=== PATIENT | male | born 1930 | race Caucasian/White ===

== ENCOUNTER 2016-09-17 20:38 | Inpatient (IN) | payer OTHER ==
--- NOTE | ~2016-09-17 | CN ---
Consultation Report [place] [place]. [address] NAME: GARRICK GONZALEZ : 30 STATUS : ADM IN PAT#: [id number] AGE: 85 ADM/REG DATE : 09/17/16 MR#: [id number] REPORT SERV DATE: 09/18/16 DICTATED BY: GARRICK GAY JR. DATE: 09/18/16 REPORT STATUS : Draft TRANSCRIBED BY: MODL DATE: 09/18/16 CONSULT NOTE DATE OF CONSULTATION: 09/18/2016 GREEN END WORKER: Garrick Gay MD. CHIEF COMPLAINT: Urinary retention. Flank pain. Acute kidney injury. HISTORY OF PRESENT ILLNESS: Mr. Gonzalez is a very pleasant 85-year-old gentleman, well known to me with a history of urinary retention. He has had a Salcedo catheter for the past several weeks. He attempted Salcedo catheter removal today in the office and was instructed to come to the office if he was unable to urinate. By 3:30, he did not come back to the office that afternoon but presented back to the emergency room that evening. He also was noted to have an elevated white blood cell count of 18,900 with a creatinine of 2.47 and an elevated blood sugar of 404. PAST MEDICAL HISTORY: Significant for hypertension, hyperlipidemia, BPH with urinary retention, insulin-dependent diabetes mellitus type 2, history of nephrolithiasis, hypothyroidism, chronic lower back pain and degenerative disc disease, and gastroesophageal reflux. SURGICAL HISTORY: Lithotripsy in the past. ALLERGIES: NONE KNOWN. HOME MEDICATIONS: 1. Aspirin. 2. Atorvastatin. 3. Ciprofloxacin. 4. [place]. 5. Lantus insulin. 6. Humalog. 7. Levothyroxine. 8. Losartan. 9. Mobic. 10.Metformin. 11.Multivitamin. 12.Flomax. SOCIAL HISTORY: He does not smoke cigarettes, use illicit drugs, or drink alcohol. His recently . FAMILY MEDICAL HISTORY: Diabetes and stroke and coronary artery disease. Consultation Report [place] [address] [place]. [address] NAME: GARRICK GONZALEZ : 30 STATUS : ADM IN PAT#: [id number] AGE: 85 ADM/REG DATE : 09/17/16 MR#: [id number] REPORT SERV DATE: 06/02/17 DICTATED BY: GARRICK GAY JR. DATE: 09/18/16 REPORT STATUS : Draft TRANSCRIBED BY: LISA DATE: 09/18/16 REVIEW OF SYSTEMS: A 10-system review was performed. Pertinent negatives include no headache. No chest pain. No nausea. No vomiting. LABORATORY DATA: White blood cell count this morning is down to 14.1 with a hemoglobin of 11.1. Creatinine has come down to 2.1. ASSESSMENT: Urinary tract infection with urinary retention and acute kidney injury. RECOMMENDATION: I had a lengthy discussion with the daughter as well as the patient today. He had a son and son-in-law with him in the office yesterday, and we had the same conversation regarding rehabilitation of his bladder with either clean intermittent catheterization or a suprapubic tube. He may be a candidate for TUMT or TURP depending on how he does with his bladder rehab. He was taught clean intermittent catheterization on two separate occasions but has been unable to do so at home. The plan at this point will be to leave his Salcedo catheter in until his urinary tract infection has been treated. Cultures with culture sensitivity directed antibiotics. We will get his blood sugar under better control and hopefully have him assessed from a back pain standpoint and his degenerative disc disease and hopefully improve his right leg pain that is giving him most difficulties. We will then have him back in the office next week to further discuss clean intermittent catheterization versus suprapubic tube placement for bladder rehabilitation, and then we will discuss surgical therapy for BPH once we have had an opportunity to reestablish some type of consistent bladder emptying without an indwelling Salcedo catheter. MAIRA/LISA Garrick Gay Jr., M.D. / [id number] CC: DO Tejinder Diana M.D.
--- NOTE | ~2016-09-17 | DS ---
Discharge Summary [facility] [address] [place]. [address] NAME: CHOLO GONZALEZ : 30 STATUS : DIS IN PAT#: [id number] AGE: 86 ADM/REG DATE : 09/17/16 MR#: [id number] REPORT SERV DATE: 09/21/16 DICTATED BY: JUSTIN COLLINS DATE: 09/20/16 REPORT STATUS : Draft TRANSCRIBED BY: MODL DATE: 09/20/16 ADMISSION DATE: 09/17/2016 DISCHARGE DATE: 09/20/2016 REASON FOR ADMISSION: Urinary retention, acute kidney injury secondary to obstructive uropathy. HISTORY OF PRESENT ILLNESS: Please refer Dr. Ward's history and physical dated 09/17/2016 for complete details regarding the patient's admission. In brief, the patient was admitted to the Hospitalist Service for management and evaluation of his ASTER secondary to obstructive uropathy. HOSPITAL COURSE: The patient had an uncomplicated hospital course. He was admitted by my colleague, Dr. Ward. The patient was just at Dr. Gay's office with a catheter, which he had discontinued. The patient was unable to void and presented to the ER with some pain and urinary retention. He had a Salcedo placed back. Dr. Gay was consulted. Creatinine on admission was 2.47 with a BUN and it has trended towards his baseline, which is a normal kidney function. His creatinine on the day of discharge is down to 1.57 with a BUN of 18. He was started on IV Rocephin for a possible urinary tract infection. Urine culture came back as less than 5000 colonies. Of note, he did have a dose of ciprofloxacin prior to admission. He had received about four days worth of IV antibiotics. Initially, a CAT scan of the abdomen was ordered; however, the patient had decline on the 1st day, then on the day prior to discharge, he was called back down to have the CAT scan done but he was not having any symptoms and his kidney function was getting better, therefore the CT scan was canceled. Dr. Gay had evaluated the patient in the hospital and recommended controlling his blood sugars and following up in one to two weeks for management of his bladder and prostate. He remained on his home dose of finasteride. His sugars were decently controlled. He did have an A1c of 13.3%. He was placed on his home dose of Lantus, which was 18 units and on a level 2 sliding scale with meals. He required anywhere from 0-4 units with his sliding scale. His daughter is concerned about his eating. He did have recent of his in July and is certainly grieving about this process and there could likely be some depression playing a role in that, but he will follow up with a GI doctor and neurosurgeon for his back pain. The patient has reached maximal hospitalization, but discharged home today in a stable condition. DISCHARGE DIAGNOSES: Acute kidney injury secondary to urinary obstruction, now resolving with a Salcedo catheter in place; urinary tract infection, now treated; benign prostatic hypertrophy, followed by Dr. Gay; degenerative joint disease with sciatica; hyperlipidemia; debility; hyponatremia, present on admission; uncontrolled insulin-dependent diabetes with an A1c of 13.3%. PROCEDURES: Include consultation with Dr. Gay. The patient will follow up with Dr. Gay in one to two weeks and Dr. Tejinder Blackmon to discuss his diabetes regimen as they feel that the short-acting insulin is too much for him. DISCHARGE MEDICATIONS: Include aspirin 81 mg daily, Mobic 15 mg p.r.n., Lipitor 10 mg every Discharge Summary [address] [address] NAME: CHOLO GONZALEZ : 30 STATUS : DIS IN PAT#: [id number] AGE: 86 ADM/REG DATE : 09/17/16 MR#: [id number] REPORT SERV DATE: 09/21/16 DICTATED BY: JUSTIN COLLINS DATE: 09/20/16 REPORT STATUS : Draft TRANSCRIBED BY: LISA DATE: 09/20/16 morning, Mims p.r.n. pain, insulin glargine 18 units before breakfast, Synthroid 25 mg every morning, multivitamin daily, Flomax 0.4 mg daily, losartan 100 mg every morning, metformin 1000 mg every morning, lispro 4 units t.i.d. with meals if eating. TIME SPENT: Over 30 minutes in discharge planning and coordination of care on Mr. Gonzalez. DICTATED BY: MD ANNA Gonzalez/LISA Justin Collins MD / [id number] CC: DO Tejinder Diana M.D. William Young Jr., M.D.
--- NOTE | ~2016-09-17 | HP ---
History And Physical [facility] [address] [place]. [address] NAME: CHOLO GONZALEZ : 30 STATUS : ADM IN PAT#: [id number] AGE: 85 ADM/REG DATE : 09/17/16 MR#: [id number] REPORT SERV DATE: 09/17/16 DICTATED BY: ROSA SPARROW DATE: 09/17/16 REPORT STATUS : Draft TRANSCRIBED BY: MODL DATE: 09/17/16 DATE OF ADMISSION: 09/17/2016 POINT OF ENTRY: [facility] Emergency Department. PRIMARY CARE PHYSICIAN: Tejinder Blackmon M.D. PRIMARY UROLOGIST: Dr. Gay. CHIEF COMPLAINT: Urinary retention and back pain. HISTORY OF PRESENT ILLNESS: Mr. Gonzalez is an 85-year-old gentleman with a history of insulin dependent diabetes mellitus type 2, hypertension, hyperlipidemia, and hypothyroidism, who presents to the emergency department today with recurrent urinary retention. The patient has had some recent troubles with urinary retention and has seen Dr. Gay in clinic. He saw him today in clinic and had his Salcedo catheter removed and was instructed that should he not be able to pee afterwards to present to the emergency department. Unfortunately, shortly after the Salcedo catheter was removed, and upon returning home, he had a sensation that he needed to pee but could not void prompting presentation to the ER. By family's report, this is now the third Salcedo catheter that has been inserted for issues with urinary retention. The patient also has had some substantial recent issues with lower back pain and sciatica type symptoms that are causing lower extremity pain, weakness, as well as frequent falls. He has had an outpatient MRI, would presume the lumbar spine, which per family report shows degenerative disk disease and they are awaiting outpatient neurosurgical evaluation for non- operative interventions. He denies any recent fevers, night sweats, chills, chest pain, shortness of breath, palpitations, abdominal pain, nausea, vomiting, diarrhea, constipation, dysuria, melena, hematochezia, hemoptysis, or hematemesis. Initial evaluation in the emergency department notable for stable vital signs. White count 18,900. Urinalysis is positive for urinary tract infection. Bladder scan did not reveal significant distention but Salcedo catheter was inserted. Labs also notable for a BUN of 48, creatinine 2.47 with unknown baseline. Sugar also was 404. The patient was started on IV fluids, antibiotics, as well as insulin and admitted to the Hospitalist Service. REVIEW OF SYSTEMS: Comprehensive review of system otherwise negative unless listed in history of present illness. PREVIOUS MEDICAL HISTORY: 1. Hypertension. 2. Hyperlipidemia. History And Physical [address] [place]. [address] NAME: CHOLO GONZALEZ : 30 STATUS : ADM IN LOCATED WITHIN [facility]#: [id number] AGE: 85 ADM/REG DATE : 09/17/16 MR#: [id number] REPORT SERV DATE: 09/17/16 DICTATED BY: ROSA SPARROW DATE: 09/17/16 REPORT STATUS : Draft TRANSCRIBED BY: LISA DATE: 09/17/16 3. BPH with urinary retention. 4. Insulin-dependent diabetes mellitus type 2. 5. History of nephrolithiasis. 6. Hypothyroidism. 7. Chronic lower back pain and degenerative disk disease. 8. Gastroesophageal reflux disease. SURGICAL HISTORY: Lithotripsy. ALLERGIES: NO KNOWN DRUG ALLERGIES. HOME MEDICATIONS: 1. Aspirin 81 mg daily. 2. Atorvastatin 10 mg daily. 3. Ciprofloxacin 500 mg one time dose. 4. Advance 5/325 one-half tab b.i.d. 5. Lantus 18 units daily. 6. Humalog 7 units daily. 7. Levothyroxine 25 mcg daily. 8. Losartan 100 mg daily. 9. Mobic 50 mg daily p.r.n. 10.Metformin 1000 mg daily. 11.Multivitamin one tab daily. 12.Flomax 0.4 mg daily. SOCIAL HISTORY: Denies any tobacco, alcohol, or illicits, is recently . FAMILY MEDICAL HISTORY: Mother with diabetes and stroke. Father with coronary artery disease. Sibling with brain cancer. LABS AND IMAGIN. White count is 18.9, hemoglobin 11.6, hematocrit is 35.1, and platelet count is 456. 2. Sodium is 132, potassium 4.7, chloride 94, carbon dioxide 30, BUN is 48, creatinine 2.47, glucose is 404, calcium is 9.4, protein 7.4, albumin is 2.4, bilirubin is 0.4, ALT is 12, AST 6, alkaline phosphatase is 103. 3. Urinalysis: Spec gravity is 1.015, hazy with positive glucose but negative ketones, large blood and large leukocyte esterase with 176 red blood and 129 white blood cells per high-powered field. PHYSICAL EXAMINATION: VITAL SIGNS: Temperature is 97.2 degrees Fahrenheit, pulse is 87, respirations 16, blood pressure 134/89, saturating 98% on room air. GENERAL: The patient is awake, alert, in no acute distress, resting comfortably in bed. He is a well-developed, well-nourished, elderly male. Multiple family members are at bedside. HEENT: Atraumatic and normocephalic. Dry mucous membranes. Pupils are equal, round, reactive to light and accommodation. Extraocular eye movements are intact. No scleral History And Physical [address] [address] NAME: CHOLO GONZALEZ : 30 STATUS : ADM IN LOCATED WITHIN [facility]#: [id number] AGE: 85 ADM/REG DATE : 09/17/16 MR#: [id number] REPORT SERV DATE: 09/17/16 DICTATED BY: ROSA SPARROW DATE: 09/17/16 REPORT STATUS : Draft TRANSCRIBED BY: LISA DATE: 09/17/16 icterus. NECK: No jugular venous distention. No carotid bruits. CARDIAC: Regular rate and rhythm. No murmurs, rubs, or gallops. Normal S1, S2. LUNGS: Clear to auscultation bilaterally. No wheezes, rhonchi, or crackles. ABDOMEN: Soft, nontender, nondistended. Good bowel sounds. No rebound, guarding, or rigidity. EXTREMITIES: Warm, perfused. No cyanosis, clubbing, or edema. SKIN: Warm and dry. PSYCH: Affect appropriate. : Salcedo catheter in place. NEUROLOGIC: Alert and oriented x3. Cranial nerves 2 through 12 grossly intact. Speech is normal. Gait not assessed. ASSESSMENT: Mr. Gonzalez is an 85-year-old gentleman who has had recent issues with urinary retention requiring long-term Salcedo catheter insertion who presents back with recurrent urinary retention after Salcedo catheter has recently been discontinued. PROBLEM LIST: 1. Recurrent urinary retention. 2. BPH. 3. Urinary tract infection. 4. Leukocytosis. 5. Acute kidney injury versus chronic kidney disease, stage III. 6. Insulin-dependent diabetes mellitus type 2 with hyperglycemia. 7. Chronic lower back pain with degenerative disk disease. PLAN: 1. Urinary retention and BPH. We will continue patient's home Flomax. Salcedo catheter has been inserted. We will consult Dr. Gay for assistance in the morning. 2. Urinary tract infection. Follow up urine culture. We will place the patient on IV Rocephin in the meantime. 3. Acute kidney injury versus chronic kidney disease stage 3. We will try to obtain records from Dr. Blackmon's office to try to establish recent baseline. Holding nephrotoxic medications. Providing IV fluid hydration. We will check urine lytes as well as a CT of the abdomen and pelvis to evaluate for any evidence of obstruction especially in light of history of nephrolithiasis in the past. 4. Insulin-dependent diabetes mellitus type 2 with hyperglycemia. Per patient's report, he has not been good about checking his blood sugar or taking his insulin in the last few weeks as he has not felt well secondary to his back pain and sciatica. He has received 5 units of IV insulin here in the emergency department. We will continue level 2 sliding scale as well as his home Levemir. We will check hemoglobin A1c as well as consult staff educator for assistance. 5. Leukocytosis, likely secondary to urinary tract infection. Antibiotics were administered prior to collection of blood cultures, so these will not be ordered, but we will check a chest x-ray as well as a CT of the abdomen and pelvis. 6. Chronic lower back pain with degenerative disk disease. Given reports of weakness and falls, we will consult Physical Therapy for assistance. We will defer further History And Physical [address] [address] NAME: CHOLO GONZALEZ : 30 STATUS : ADM IN PAT#: [id number] AGE: 85 ADM/REG DATE : 09/17/16 MR#: [id number] REPORT SERV DATE: 09/17/16 DICTATED BY: ROSA SPARROW DATE: 09/17/16 REPORT STATUS : Draft TRANSCRIBED BY: LISA DATE: 09/17/16 management of his chronic lower back pain to his primary care physician. 7. DVT prophylaxis. Heparin subcu. CODE STATUS: The patient wished to be full code. MARYBETH/LISA Rosa Sparrow MD / [id number] CC: Diamond Jarvis Jr., M.D.
[2016-09-17 20:40] LABS: BASOPHILS 0.2 %; BASOPHILS ABSOLUTE 0.04 10/3/uL (0.0-0.16); EOSINOPHILS 0.8 %; EOSINOPHILS ABSOLUTE 0.15 10/3/uL (0.0-0.53); ER CBC TAT 0 Hrs 03 Mins; HEMATOCRIT 35.1 % (40.0-51.0); HEMOGLOBIN 11.6 g/dL (13.6-17.8); IMMATURE GRANULOCYTES 0.5 %; IMMATURE GRANULOCYTES ABSOLUTE 0.09 10/3/uL (0.0-0.11); LYMPHOCYTES 5.8 %; MEAN CORPUSCULAR HEMOGLOB 27.8 pg (26.0-34.0); MEAN CORPUSCULAR VOLUME 84.2 fL (80-100); MEAN PLATELET VOLUME 9.5 fL (9.2-13.0); MONOCYTES 6.2 %; MONOCYTES ABSOLUTE 1.17 10/3/uL (0.21-1.20); NEUTROPHILS 86.5 %; NEUTROPHILS ABSOLUTE 16.31 10/3/uL (2.02-8.40); PLATELET COUNT 456 10/3/uL (150-400); RBC DISTRIBUTION WIDTH 12.7 % (12.0-16.0); RED CELL COUNT 4.17 10/6/uL (4.7-6.1); WHITE BLOOD CELLS 18.9 10/3/uL (4.5-10.5)
[2016-09-17 20:44] LABS: MANUAL DIFF NO %
[2016-09-17 20:47] LABS: ASCORBIC ACID (UR NOT ORDER) NEG (NEG); BILIRUBIN, URINE NEGATIVE (NEG); ER URINALYSIS TAT 0 Hrs 11 Mins; KETONE, URINE NEGATIVE (NEG); LEUKOCYTE ESTERASE(NOT OR LARGE (NEG); NITRITE (URINE) NEG (NEG); WBC (NOT ORDERED) (RFLEX) 129 (0-5)
[2016-09-17 20:55] LABS: A/G RATIO 0.5 (0.7-1.9); ALBUMIN 2.4 G/DL (3.5-5.0); ALKALINE PHOSPHATASE 103 U/L (45-117); BUN (BLOOD UREA NITROGEN) 48 MG/DL (6-23); CALCIUM, SERUM 9.4 MG/DL (8.5-10.4); CHLORIDE, SERUM 94 MMOL/L (96-112); CO2 (CARBON DIOXIDE) 30 MMOL/L (24-34); CREATININE 2.47 MG/DL (0.70-1.30); GFR AFRICAN AMERICAN 27 ML/MIN (>=60); GFR NON AFRICAN AMERICAN 23 ML/MIN (>=60); POTASSIUM, SERUM 4.7 MMOL/L (3.5-5.3); SGOT(AST) 6 U/L (5-40); SGPT(ALT) 12 U/L (5-65); SODIUM, SERUM 132 MMOL/L (135-148); TOTAL BILIRUBIN 0.4 MG/DL (0-1.2); TOTAL PROTEIN 7.4 G/DL (6.0-8.5)
[2016-09-17 20:58] LABS: GLUCOSE, SERUM 404 MG/DL (60-99)
[2016-09-17] MEDS ORDERED: NORCO1 TA1 PO (21:56)
[2016-09-17] MEDS ORDERED: MOBIC15 MG PO (21:57)
[2016-09-17] MEDS ORDERED: CIP5 PO (21:57)
[2016-09-17] MEDS ORDERED: LIPITOR10 PO (21:58)
[2016-09-17] MEDS ORDERED: COZAAR100 MG PO (21:58)
[2016-09-17] MEDS ORDERED: SYN.025B PO (21:59)
[2016-09-17] MEDS ORDERED: GLUCOPHAGE1000 MG PO (22:00)
[2016-09-17] MEDS ORDERED: NOVOLOG SC (22:01)
[2016-09-17] MEDS ORDERED: LANTUS SC (22:02)
[2016-09-17] MEDS ORDERED: THERA M PLUS PO (22:03)
[2016-09-17] MEDS ORDERED: FLOMAX4 PO (22:03)
[2016-09-17] MEDS ORDERED: ASAB PO (22:04)
[2016-09-18 06:48] LABS: BASOPHILS 0.1 %; BASOPHILS ABSOLUTE 0.02 10/3/uL (0.0-0.16); EOSINOPHILS 3.5 %; EOSINOPHILS ABSOLUTE 0.49 10/3/uL (0.0-0.53); HEMATOCRIT 33.5 % (40.0-51.0); HEMOGLOBIN 11.1 g/dL (13.6-17.8); IMMATURE GRANULOCYTES 0.6 %; IMMATURE GRANULOCYTES ABSOLUTE 0.08 10/3/uL (0.0-0.11); LYMPHOCYTES 9.1 %; LYMPHOCYTES ABSOLUTE 1.28 10/3/uL (0.67-4.30); MEAN CORPUS HGB CONC 33.1 g/dL (32.0-36.0); MEAN CORPUSCULAR VOLUME 84.4 fL (80-100); MEAN PLATELET VOLUME 9.4 fL (9.2-13.0); MONOCYTES 6.5 %; MONOCYTES ABSOLUTE 0.91 10/3/uL (0.21-1.20); NEUTROPHILS 80.2 %; NEUTROPHILS ABSOLUTE 11.29 10/3/uL (2.02-8.40); PLATELET COUNT 412 10/3/uL (150-400); RBC DISTRIBUTION WIDTH 12.5 % (12.0-16.0); RED CELL COUNT 3.97 10/6/uL (4.7-6.1); WHITE BLOOD CELLS 14.1 10/3/uL (4.5-10.5)
[2016-09-18 06:54] LABS: MANUAL DIFF NO %
[2016-09-18 07:09] LABS: CALCIUM, SERUM 9.3 MG/DL (8.5-10.4); CHLORIDE, SERUM 103 MMOL/L (96-112); CO2 (CARBON DIOXIDE) 28 MMOL/L (24-34); FREE T4 1.36 NG/DL (0.76-1.46); GFR AFRICAN AMERICAN 32 ML/MIN (>=60); GFR NON AFRICAN AMERICAN 28 ML/MIN (>=60); POTASSIUM, SERUM 4.2 MMOL/L (3.5-5.3); SODIUM, SERUM 136 MMOL/L (135-148)
[2016-09-18 07:11] LABS: BUN (BLOOD UREA NITROGEN) 41 MG/DL (6-23); GLUCOSE, SERUM 242 MG/DL (60-99)
[2016-09-19 04:56] LABS: CHLORIDE, SERUM 108 MMOL/L (96-112); CO2 (CARBON DIOXIDE) 26 MMOL/L (24-34); CREATININE 1.74 MG/DL (0.70-1.30); GFR AFRICAN AMERICAN 41 ML/MIN (>=60); GFR NON AFRICAN AMERICAN 35 ML/MIN (>=60); PHOSPHORUS, SERUM 2.4 MG/DL (2.5-4.5); POTASSIUM, SERUM 4.3 MMOL/L (3.5-5.3); SODIUM, SERUM 141 MMOL/L (135-148)
[2016-09-19 04:57] LABS: BUN (BLOOD UREA NITROGEN) 28 MG/DL (6-23); CALCIUM, SERUM 8.2 MG/DL (8.5-10.4); GLUCOSE, SERUM 150 MG/DL (60-99)
[2016-09-19 04:58] LABS: BASOPHILS 0.5 %; BASOPHILS ABSOLUTE 0.05 10/3/uL (0.0-0.16); EOSINOPHILS 6.4 %; EOSINOPHILS ABSOLUTE 0.61 10/3/uL (0.0-0.53); HEMATOCRIT 30.4 % (40.0-51.0); IMMATURE GRANULOCYTES 0.3 %; IMMATURE GRANULOCYTES ABSOLUTE 0.03 10/3/uL (0.0-0.11); LYMPHOCYTES 13.5 %; LYMPHOCYTES ABSOLUTE 1.29 10/3/uL (0.67-4.30); MEAN CORPUS HGB CONC 32.9 g/dL (32.0-36.0); MEAN CORPUSCULAR VOLUME 85.2 fL (80-100); MEAN PLATELET VOLUME 9.6 fL (9.2-13.0); MONOCYTES ABSOLUTE 0.67 10/3/uL (0.21-1.20); NEUTROPHILS 72.3 %; NEUTROPHILS ABSOLUTE 6.92 10/3/uL (2.02-8.40); PLATELET COUNT 407 10/3/uL (150-400); RBC DISTRIBUTION WIDTH 12.7 % (12.0-16.0); RED CELL COUNT 3.57 10/6/uL (4.7-6.1); WHITE BLOOD CELLS 9.6 10/3/uL (4.5-10.5)
[2016-09-19 04:59] LABS: MANUAL DIFF NO %
[2016-09-20 08:12] LABS: BASOPHILS 0.8 %; BASOPHILS ABSOLUTE 0.06 10/3/uL (0.0-0.16); EOSINOPHILS 7.8 %; EOSINOPHILS ABSOLUTE 0.59 10/3/uL (0.0-0.53); HEMOGLOBIN 10.2 g/dL (13.6-17.8); IMMATURE GRANULOCYTES 0.5 %; IMMATURE GRANULOCYTES ABSOLUTE 0.04 10/3/uL (0.0-0.11); LYMPHOCYTES 16.2 %; LYMPHOCYTES ABSOLUTE 1.23 10/3/uL (0.67-4.30); MEAN CORPUS HGB CONC 32.9 g/dL (32.0-36.0); MEAN CORPUSCULAR VOLUME 85.2 fL (80-100); MEAN PLATELET VOLUME 9.2 fL (9.2-13.0); MONOCYTES 6.1 %; MONOCYTES ABSOLUTE 0.46 10/3/uL (0.21-1.20); NEUTROPHILS 68.6 %; PLATELET COUNT 385 10/3/uL (150-400); RBC DISTRIBUTION WIDTH 12.9 % (12.0-16.0); RED CELL COUNT 3.64 10/6/uL (4.7-6.1); WHITE BLOOD CELLS 7.6 10/3/uL (4.5-10.5)
[2016-09-20 08:15] LABS: MANUAL DIFF NO %
[2016-09-20 08:27] LABS: CALCIUM, SERUM 8.5 MG/DL (8.5-10.4); CHLORIDE, SERUM 110 MMOL/L (96-112); CO2 (CARBON DIOXIDE) 26 MMOL/L (24-34); CREATININE 1.57 MG/DL (0.70-1.30); GFR AFRICAN AMERICAN 46 ML/MIN (>=60); GFR NON AFRICAN AMERICAN 39 ML/MIN (>=60); GLUCOSE, SERUM 142 MG/DL (60-99); PHOSPHORUS, SERUM 2.8 MG/DL (2.5-4.5); POTASSIUM, SERUM 4.5 MMOL/L (3.5-5.3); SODIUM, SERUM 139 MMOL/L (135-148)
[2016-09-20 08:28] LABS: BUN (BLOOD UREA NITROGEN) 18 MG/DL (6-23)
[2016-09-29] MEDS ORDERED: MACROBID PO (15:59)
[2016-09-29] MEDS ORDERED: PROTONIX PO (16:02)
[2016-09-29] MEDS ORDERED: REM15 PO (16:04)
[2016-10-27] MEDS ORDERED: TEARS PLUS OPH (23:37)
[2016-11-23] MEDS ORDERED: ARICEPT5 PO (11:56)
[2016-11-23] MEDS ORDERED: FERROUS SULF325 M1 PO (11:56)
[2016-11-23] MEDS ORDERED: L40 PO (11:56)
[2016-11-23] MEDS ORDERED: MAALOX PO (12:02)
[2016-11-23] MEDS ORDERED: IMOD PO (12:03)
[2016-11-23] MEDS ORDERED: T PO (12:03)
[2016-11-23] MEDS ORDERED: MOMUD PO (12:05)
[2016-11-23] MEDS ORDERED: SEROQUEL25 PO (12:06)
[2016-11-26] MEDS ORDERED: COREG6 PO (15:28)
[2016-11-26] MEDS ORDERED: OMNICEF300 PO (15:28)
[2016-11-26] MEDS ORDERED: NOVOLOG SC (15:31)
[2016-11-26] MEDS ORDERED: APRES25 PO (15:32)
[2016-11-26] MEDS ORDERED: SODBICAR10 PO (15:33)
[2016-11-26] MEDS ORDERED: LEVEMIR SC (15:34)
[2016-11-26] MEDS ORDERED: MVI PO (15:38)
[2016-12-10] MEDS ORDERED: ARICEPT5 PO (16:43)
[2016-12-10] MEDS ORDERED: FERROUS SULF325 M1 PO (16:43)
[2016-12-10] MEDS ORDERED: COREG6 PO (16:43)
[2016-12-10] MEDS ORDERED: L40 PO (16:43)
[2016-12-10] MEDS ORDERED: LIPITOR10 PO (16:43)
[2016-12-10] MEDS ORDERED: LEVOTHYROXIN25 MCG PO (16:44)
[2016-12-10] MEDS ORDERED: LANTUSCART SC (16:44)
[2016-12-10] MEDS ORDERED: SODBICAR10 PO (16:45)
[2016-12-10] MEDS ORDERED: FLAGYL250 MG PO (16:45)
[2016-12-10] MEDS ORDERED: PROTONIX PO (16:45)
[2016-12-10] MEDS ORDERED: [UNRECOGNIZED DRUG - OTHER] PO (16:45)
[2016-12-10] MEDS ORDERED: FLOMAX4 PO (16:45)
[2016-12-10] MEDS ORDERED: NOVOPEN SC (16:46)
[2016-12-10] MEDS ORDERED: DIAMODE2 MG PO (16:57)
[2016-12-10] MEDS ORDERED: [UNRECOGNIZED DRUG - OTHER] PO (16:57)
[2016-12-10] MEDS ORDERED: APRES25 PO (16:58)
[2016-12-10] MEDS ORDERED: LOM PO (16:58)
[2016-12-10] MEDS ORDERED: LOPERAMIDE PO (16:59)
[2016-12-10] MEDS ORDERED: T PO (16:59)
[2016-12-10] MEDS ORDERED: SEROQUEL25 PO (17:00)
[2016-12-16] MEDS ORDERED: COREG3 PO ×2 (13:10→13:11)
[2016-12-16] MEDS ORDERED: VANCOCIN HCL125 MG PO (13:19)
== END 2016-09-20 14:43 | disposition home or self-care (01) | DRG 683 ==
LOC: ER 20:38 → 4SO 23:03
PROVIDERS: Internal Medicine; Nurse Practitioner
DX: N17.9 Acute kidney failure, unspecified (principal); N39.0 Urinary tract infection, site not specified; E11.65 Type 2 diabetes mellitus with hyperglycemia; E87.1 Hypo-osmolality and hyponatremia; I12.9 Hypertensive chronic kidney disease with stage 1 through stage 4 chronic kidney disease, or unspecified chronic kidney disease; N18.3 Chronic kidney disease, stage 3 (moderate); E78.5 Hyperlipidemia, unspecified; K21.9 Gastro-esophageal reflux disease without esophagitis; E03.9 Hypothyroidism, unspecified; N40.1 Benign prostatic hyperplasia with lower urinary tract symptoms; R33.8 Other retention of urine; Z79.82 Long term (current) use of aspirin; Z79.84 Long term (current) use of oral hypoglycemic drugs; Z79.899 Other long term (current) drug therapy; Z87.442 Personal history of urinary calculi
CPT/HCPCS: 71010; 80048; 80053; 80069; 81001; 82570; 82962; 83036; 83735; 83935; 84100; 84300; 84439; 84443; 85025; 87086; 96374; 97161-GP; 99284; A9270-GY

== ENCOUNTER 2016-10-01 06:57 | Day surgery (SDC) | payer OTHER ==
[~2016-10-01 06:57] MED LIST: ASAB PO; CIP5 PO; COZAAR100 MG PO; FLOMAX4 PO; GLUCOPHAGE1000 MG PO; LANTUS SC; LIPITOR10 PO; MACROBID PO; MOBIC15 MG PO; NORCO1 TA1 PO; NOVOLOG SC; PROTONIX PO; REM15 PO; SYN.025B PO; THERA M PLUS PO
[2016-10-27] MEDS ORDERED: TEARS PLUS OPH (23:37)
[2016-11-23] MEDS ORDERED: ARICEPT5 PO (11:56)
[2016-11-23] MEDS ORDERED: L40 PO (11:56)
[2016-11-23] MEDS ORDERED: FERROUS SULF325 M1 PO (11:56)
[2016-11-23] MEDS ORDERED: MAALOX PO (12:02)
[2016-11-23] MEDS ORDERED: T PO (12:03)
[2016-11-23] MEDS ORDERED: IMOD PO (12:03)
[2016-11-23] MEDS ORDERED: MOMUD PO (12:05)
[2016-11-23] MEDS ORDERED: SEROQUEL25 PO (12:06)
[2016-11-26] MEDS ORDERED: OMNICEF300 PO (15:28)
[2016-11-26] MEDS ORDERED: COREG6 PO (15:28)
[2016-11-26] MEDS ORDERED: NOVOLOG SC (15:31)
[2016-11-26] MEDS ORDERED: APRES25 PO (15:32)
[2016-11-26] MEDS ORDERED: SODBICAR10 PO (15:33)
[2016-11-26] MEDS ORDERED: LEVEMIR SC (15:34)
[2016-11-26] MEDS ORDERED: MVI PO (15:38)
[2016-12-10] MEDS ORDERED: L40 PO (16:43)
[2016-12-10] MEDS ORDERED: LIPITOR10 PO (16:43)
[2016-12-10] MEDS ORDERED: COREG6 PO (16:43)
[2016-12-10] MEDS ORDERED: FERROUS SULF325 M1 PO (16:43)
[2016-12-10] MEDS ORDERED: ARICEPT5 PO (16:43)
[2016-12-10] MEDS ORDERED: LANTUSCART SC (16:44)
[2016-12-10] MEDS ORDERED: LEVOTHYROXIN25 MCG PO (16:44)
[2016-12-10] MEDS ORDERED: SODBICAR10 PO (16:45)
[2016-12-10] MEDS ORDERED: [UNRECOGNIZED DRUG - OTHER] PO (16:45)
[2016-12-10] MEDS ORDERED: FLOMAX4 PO (16:45)
[2016-12-10] MEDS ORDERED: PROTONIX PO (16:45)
[2016-12-10] MEDS ORDERED: FLAGYL250 MG PO (16:45)
[2016-12-10] MEDS ORDERED: NOVOPEN SC (16:46)
[2016-12-10] MEDS ORDERED: DIAMODE2 MG PO (16:57)
[2016-12-10] MEDS ORDERED: [UNRECOGNIZED DRUG - OTHER] PO (16:57)
[2016-12-10] MEDS ORDERED: APRES25 PO (16:58)
[2016-12-10] MEDS ORDERED: LOM PO (16:58)
[2016-12-10] MEDS ORDERED: T PO (16:59)
[2016-12-10] MEDS ORDERED: LOPERAMIDE PO (16:59)
[2016-12-10] MEDS ORDERED: SEROQUEL25 PO (17:00)
[2016-12-16] MEDS ORDERED: COREG3 PO ×2 (13:10→13:11)
[2016-12-16] MEDS ORDERED: VANCOCIN HCL125 MG PO (13:19)
== END 2016-10-01 09:41 | disposition home or self-care (01) ==
LOC: SDC 06:57
PROVIDERS: Orthopaedic Surgery
PROC: 3E0R3BZ Introduction of Anesthetic Agent into Spinal Canal, Percutaneous Approach (ICD-10-PCS; 2016-10-01)
PROC: B01BYZZ Fluoroscopy of Spinal Cord using Other Contrast (ICD-10-PCS; 2016-10-01)
PROC: 3E0R33Z Introduction of Anti-inflammatory into Spinal Canal, Percutaneous Approach (ICD-10-PCS; principal; 2016-10-01 08:15)
DX: M54.16 Radiculopathy, lumbar region (principal); E03.9 Hypothyroidism, unspecified; F32.9 Major depressive disorder, single episode, unspecified; E11.9 Type 2 diabetes mellitus without complications; I10 Essential (primary) hypertension; E78.00 Pure hypercholesterolemia, unspecified; K21.9 Gastro-esophageal reflux disease without esophagitis; Z87.442 Personal history of urinary calculi; Z98.890 Other specified postprocedural states
CPT/HCPCS: 82962; J1040; J2250; J3010; Q9967